=== PATIENT | female | born 1980 | race Hispanic/Latino ===

== ENCOUNTER 2018-09-11 12:07 | Emergency (ER) | payer OTHER ==
--- NOTE | 2018-09-11 12:58 | Emergency Department Report ---
ED Headache HPI - General Chief Complaint: High BP Stated Complaint: LIGHT HEADED Time Seen by Provider: 09/11/18 12:30 - History of Present Illness Initial Comments: This is a 38 year old female who presents via EMS for evaluation of acute headache. The patient states that she is never gone to the emergency department for headache before. She keeps her eyes closed and is a bit lethargic. However she is able to tell me that she awoke at about 8:00 this morning with a bifrontal headache which was severe. She states that she has never had a headache like this before. She does present with hypertension. She states that she has been nauseated and did vomit. She denies any nuchal rigidity or neck discomfort. She states that she had spinning and dizziness upon walking. Patient was found to be pale. She was lethargic. Therefore, emergency CT studies were directly obtained. Timing/Duration: 4-6 hours Quality: severe Head Injury Location: frontal Recent Head Trauma: no recent headache/trauma Modifying Factors: worse with: cold therapy, exposure to light, immobilization, medication, movement, rest, other Associated Symptoms: nausea/vomiting, other (vertigo). denies: denies symptoms, confusion, fatigue, facial pain, fever/chills, flushing, loss of consciousness, nasal congestion, nasal drainage, numbness in legs/feet, rash, seizures, sinus infection, stiff neck, vision changes, weakness Allergies/Adverse Reactions: Allergies acetaminophen [From Fioricet] Adverse Reaction (Verified 12/03/15 14:01) Headache butalbital [From Fioricet] Adverse Reaction (Verified 12/03/15 14:01) Headache caffeine [From Fioricet] Adverse Reaction (Verified 12/03/15 14:01) Headache Home Medications: Ambulatory Orders Aspirin [Aspirin BABY CHEW TAB] 81 mg PO DAILY #30 tab.chew 12/03/15 amLODIPine [Norvasc] 5 mg PO DAILY #30 tab 12/03/15 metFORMIN [Glucophage] 1,000 mg PO BID #60 tablet 12/03/15 ED Review of Systems ROS: Stated complaint: LIGHT HEADED Other details as noted in HPI Comment: Unobtainable due to pts medical conditions (Limited secondary to patient condition G) ED Past Medical Hx - Past Medical History Previous Medical History?: Yes Hx Hypertension: Yes Hx Diabetes: No Additional medical history: Polycystic ovary syndrome - Social History Smoking Status: Never Smoker - Medications Home Medications: Home Medications Medication Instructions Recorded Confirmed Last Taken Type Aspirin [Aspirin BABY CHEW TAB] 81 mg PO DAILY #30 tab.chew 12/03/15 Unknown Rx amLODIPine [Norvasc] 5 mg PO DAILY #30 tab 12/03/15 Unknown Rx metFORMIN [Glucophage] 1,000 mg PO BID #60 tablet 12/03/15 Unknown Rx ED Physical Exam - General Limitations: Physical Limitation General appearance: lethargic - Head Head exam: Present: atraumatic, normocephalic - Eye Eye exam: Present: PERRL, EOMI. Absent: scleral icterus - ENT ENT exam: Present: mucous membranes moist - Neck Neck exam: Present: normal inspection - Respiratory Respiratory exam: Present: normal lung sounds bilaterally. Absent: respiratory distress - Cardiovascular Cardiovascular Exam: Present: regular rate, normal rhythm. Absent: systolic murmur, diastolic murmur, rubs, gallop - GI/Abdominal GI/Abdominal exam: Present: soft, normal bowel sounds. Absent: distended, te nderness, guarding, rebound, rigid - Extremities Exam Extremities exam: Present: normal inspection - Back Exam Back exam: Present: normal inspection - Neurological Exam Neurological exam: Present: CN II-XII intact (as tested below Limited exam prior to CT), other (NIH stroke score initially 0). Absent: motor sensory deficit - Psychiatric Psychiatric exam: Present: normal affect, flat affect - Skin Skin exam: Present: pallor ED Course Vital Signs 09/11/18 09/11/18 09/11/18 12:17 12:18 12:34 Temperature Pulse Rate Respiratory Rate Blood Pressure Blood Pressure 208/120 196/106 [Left] O2 Sat by Pulse 99 Oximetry 09/11/18 09/11/18 09/11/18 13:06 13:08 13:11 Temperature 97.7 F Pulse Rate 102 H 102 H Respiratory 24 24 Rate Blood Pressure 163/96 Blood Pressure 175/105 [Left] O2 Sat by Pulse 99 100 100 Oximetry 09/11/18 09/11/18 09/11/18 13:15 13:45 14:00 Temperature Pulse Rate 112 H 82 70 Respiratory 20 14 22 Rate Blood Pressure 163/96 152/83 155/77 Blood Pressure [Left] O2 Sat by Pulse 100 100 99 Oximetry 09/11/18 14:30 Temperature Pulse Rate 88 Respiratory 10 L Rate Blood Pressure 163/96 Blood Pressure [Left] O2 Sat by Pulse 99 Oximetry - Reevaluation(s) Reevaluation #1: Patient's headache spontaneously resolved. She remains lethargic. She keeps he r eyes closed but doesn't appear to be photophobic. She has no nuchal rigidity. She complains of persistent nausea. I spoke to Dr. Rob of [place] in detail about this patient's presentation. She advised transfer. The patient is stable for transfer. Bed assignment is pending. 09/11/18 14:44 ED Medical Decision Making - Lab Data Result diagrams: 09/11/18 13:10 09/11/18 13:10 Laboratory Results - last 24 hr 09/11/18 09/11/18 09/11/18 13:10 13:10 13:10 WBC 7.3 RBC 4.86 Hgb 9.8 L Hct 31.1 MCV 64 L MCH 20 L MCHC 31 RDW 18.2 H Plt Count 331 Lymph % (Auto) 14.5 [place] % (Auto) 5.0 Eos % (Auto) 0.9 Baso % (Auto) 0.8 Lymph # 1.1 L [place] # 0.4 Eos # 0.1 Baso # 0.1 Seg Neutrophils % 78.8 H Seg Neutrophils # 5.8 PT 13.7 INR 1.01 APTT 29.1 Sodium 133 L Potassium 4.7 Chloride 100.7 Carbon Dioxide 22 Anion Gap 15 BUN 11 Creatinine 0.8 Estimated GFR > 60 BUN/Creatinine Ratio 14 Glucose 117 H Calcium 7.8 L Magnesium Total Bilirubin Direct Bilirubin Indirect Bilirubin AST ALT Alkaline Phosphatase Troponin T < 0.010 NT-Pro-B Natriuret Pep Total Protein Albumin Albumin/Globulin Ratio Urine Color Urine Turbidity Urine pH Ur Specific [place] Urine Protein Urine Glucose (UA) Urine Ketones Urine Blood Urine Nitrite Urine Bilirubin Urine Urobilinogen Ur Leukocyte Esterase Urine WBC (Auto) Urine RBC (Auto) U Epithel Cells (Auto) Urine Mucus Urine Opiates Screen Urine Methadone Screen Ur Barbiturates Screen Ur Phencyclidine Scrn Ur Amphetamines Screen U Benzodiazepines Scrn Urine Cocaine Screen U Marijuana (THC) Screen Drugs of Abuse Note 09/11/18 09/11/18 09/11/18 13:10 Unknown Unknown WBC RBC Hgb Hct MCV MCH MCHC RDW Plt Count Lymph % (Auto) [place] % (Auto) Eos % (Auto) Baso % (Auto) Lymph # [place] # Eos # Baso # Seg Neutrophils % Seg Neutrophils # PT INR APTT Sodium Potassium Chloride Carbon Dioxide Anion Gap BUN Creatinine Estimated GFR BUN/Creatinine Ratio Glucose Calcium Magnesium 1.70 Total Bilirubin 0.30 Direct Bilirubin < 0.2 Indirect Bilirubin 0.1 AST 17 ALT 20 Alkaline Phosphatase 87 Troponin T NT-Pro-B Natriuret Pep 24.28 Total Protein 6.6 Albumin 3.7 L Albumin/Globulin Ratio 1.3 Urine Color Yellow Urine Turbidity Clear Urine pH 6.0 Ur Specific [place] 1.036 H Urine Protein <15 mg/dl Urine Glucose (UA) Neg Urine Ketones Neg Urine Blood Neg Urine Nitrite Neg Urine Bilirubin Neg Urine Urobilinogen < 2.0 Ur Leukocyte Esterase Sm Urine WBC (Auto) 4.0 Urine RBC (Auto) < 1.0 U Epithel Cells (Auto) 4.0 Urine Mucus Few Urine Opiates Screen Presumptive negative Urine Methadone Screen Presumptive negative Ur Barbiturates Screen Presumptive negative Ur Phencyclidine Scrn Presumptive negative Ur Amphetamines Screen Presumptive negative U Benzodiazepines Scrn Presumptive negative Urine Cocaine Screen Presumptive negative U Marijuana (THC) Screen Presumptive negative Drugs of Abuse Note Disclamer Critical care attestation.: If time is entered above; I have spent that time in minutes in the direct care of this critically ill patient, excluding procedure time. ED Disposition Clinical Impression: Altered mental status Qualifiers: Altered mental status type: somnolence Qualified Code(s): R40.0 - Somnolence Cephalalgia Qualifiers: Headache type: unspecified Headache chronicity pattern: acute headache Intractability: not intractable Qualified Code(s): R51 - Headache Hypertension Qualifiers: Hypertension type: essential hypertension Qualified Code(s): I10 - Essential (primary) hypertension Disposition: DC/TX-70 ANOTHER TYPE HLTHCARE Is pt being admited?: Yes Does the pt Need Aspirin: No Condition: Stable Instructions: Hypertension (ED) Referrals: PRIMARY CARE, [Primary Care Provider] - 3-5 Days Time of Disposition: 14:46
[2018-09-11 13:20] LABS: Basophils # (Auto) 0.1 K/mm3 (0.0-0.1); Basophils % (Auto) 0.8 % (0.0-1.8); Eosinophils # (Auto) 0.1 K/mm3 (0.0-0.4); Eosinophils % (Auto) 0.9 % (0.0-4.3); Hematocrit 31.1 % (30.3-42.9); Hemoglobin 9.8 gm/dl (10.1-14.3); Lymphocytes # (Auto) 1.1 K/mm3 (1.2-5.4); Lymphocytes % (Auto) 14.5 % (13.4-35.0); Mean Corpuscular HGB Conc 31 % (30-34); Monocytes # (Auto) 0.4 K/mm3 (0.0-0.8); Platelet Count 331 K/mm3 (140-440); Red Blood Count 4.86 M/mm3 (3.65-5.03); Red Cell Distribution Width 18.2 % (13.2-15.2)
[2018-09-11 13:21] LABS: Mean Corpuscular Volume 64 fl (79-97)
--- NOTE | 2018-09-11 13:30 | Cat Scan Report ---
CT HEAD WITHOUT CONTRAST: HISTORY: Headache, vertigo, hypertension. TECHNIQUE: Sequential 2.5mm CT images. COMPARISON: none. FINDINGS: Cerebral Parenchyma: Within normal limits. Cerebellum: Within normal limits. Brainstem: Within normal limits. Ventricles: Normal. Sella: Normal. Extra-axial spaces: Normal. Basal Cisterns: Normal. Intracranial Hemorrhage: None. Midline Shift: None. Calvarium: Normal. Sinuses: Normal. Mastoid Air Cells: Normal. Visualized Orbits: Normal. IMPRESSION: Cranial CT scan within normal limits.
[2018-09-11 13:31] LABS: INR 1.01 (0.87-1.13)
--- NOTE | 2018-09-11 13:31 | Cat Scan Report ---
CTA HEAD: HISTORY: Vertigo, lethargy, headache. TECHNIQUE: Helical CT images after IV contrast with 0.625mm reformations. Sagittal and coronal reformats. Rotational MIP images. 3D volume rendering technique. FINDINGS: The arterial structures of the anterior and posterior circulations are patent throughout. No evidence for stenosis, occlusion or aneurysm. IMPRESSION: Unremarkable CTA head.
--- NOTE | 2018-09-11 13:31 | Cat Scan Report ---
CTA NECK: HISTORY: Vertigo, lethargy, headache. TECHNIQUE: Helical CT following IV contrast. Sagittal and coronal reformatted images. 3D volume rendering technique. Stenosis was calculated using NASCET criteria with the distal ICA being stented diameter. FINDINGS: The visualized aortic arch, innominate artery and proximal bilateral subclavian arteries are widely patent with less than 20% stenosis. Within the right carotid system: Less than 20% stenosis. Within the left carotid system: Less than 20% stenosis. The cervical vertebral arteries are patent with less than 20% stenosis. IMPRESSION: Unremarkable CTA of the neck.
[2018-09-11 13:32] LABS: Partial Thromboplastin Time 29.1 Sec. (24.2-36.6)
[2018-09-11 13:44] LABS: BUN/Creatinine Ratio 14; Blood Urea Nitrogen 11 mg/dL (7-17); Calcium 7.8 mg/dL (8.4-10.2); Hemolysis Index 4
[2018-09-11 13:46] LABS: Alanine Aminotransferase 20 units/L (7-56); Albumin 3.7 g/dL (3.9-5)
[2018-09-11] MEDS ORDERED: ZOFRAN IV ONE (13:47)
[2018-09-11 13:49] LABS: Bilirubin,Direct < 0.2 mg/dL (0-0.2)
[2018-09-11 14:07] LABS: Bilirubin,Urine NEG (Negative); Blood,Urine NEG (Negative); Color,Urine Yellow (Yellow); Mucus,Urine FEW /HPF; Protein,Urine <15 mg/dL mg/dL (Negative); RBC,Urine < 1.0 /HPF (0.0-6.0); Urobilinogen,Urine < 2.0 mg/dL (<2.0)
[2018-09-11 14:10] LABS: Amphetamine Screen,Urine PRESUMPTIVE NEGATIVE; Benzodiazepines Screen,Urine PRESUMPTIVE NEGATIVE; Cannabinoid Screen,Urine PRESUMPTIVE NEGATIVE; Cocaine Screen,Urine PRESUMPTIVE NEGATIVE; Methadone Screen,Urine PRESUMPTIVE NEGATIVE; Opiate Screen,Urine PRESUMPTIVE NEGATIVE
[2018-09-11 16:18] VITALS: BP 158/79
== END 2018-09-11 17:27 | disposition other institution (70) ==
LOC: ED 12:07
DX: R41.82 Altered mental status, unspecified (principal); I10 Essential (primary) hypertension; R11.2 Nausea with vomiting, unspecified; R42 Dizziness and giddiness; E28.2 Polycystic ovarian syndrome; Z88.6 Allergy status to analgesic agent; Z88.5 Allergy status to narcotic agent; Z91.018 Allergy to other foods
CPT/HCPCS: 36415; 70450; 70496; 70498; 80048; 80076; 80307; 81001; 83735; 83880; 84484; 85025; 85610; 85730; 93005; 93010; 96374; 99285; J2405; Q9967